=== PATIENT | female | born 1945 | race Caucasian/White ===

== ENCOUNTER 2018-04-21 13:38 | Inpatient (IN) | payer MEDICARE, OTHER ==
[~2018-04-21] VITALS: Ht 172.7 cm; Wt 75.8 kg
[~2018-04-21 13:38] MED LIST: BACITRACIN 50,000 UNIT ONE
[2018-04-21] MEDS ORDERED: LACTATED RINGERS 1,000 ML IV SCH (13:59)
[2018-04-21] MEDS ORDERED: LORA10TA62 PO (14:47)
[2018-04-21] MEDS ORDERED: SENN-31 PO (14:47)
[2018-04-21] MEDS ORDERED: GABA300C10 PO (14:47)
[2018-04-21] MEDS ORDERED: AMLO10TA6 PO (14:47)
[2018-04-21] MEDS ORDERED: ZOLP5TAB PO (14:47)
[2018-04-21] MEDS ORDERED: METO-264 PO (14:47)
[2018-04-21] MEDS ORDERED: OXYB5TAB PO (14:47)
[2018-04-21] MEDS ORDERED: POTA25TA4 PO (14:47)
[2018-04-21] MEDS ORDERED: LEVO112T4 PO (14:47)
[2018-04-21] MEDS ORDERED: HYDR-3343 PO (14:47)
[2018-04-21] MEDS ORDERED: ROPI4TAB6 PO (14:47)
[2018-04-21] MEDS ORDERED: OMEP20CA14 PO (14:47)
[2018-04-21] MEDS ORDERED: METH500T97 PO (14:47)
[2018-04-21] MEDS ORDERED: OXYC5CAP2 PO (14:47)
[2018-04-21] MEDS ORDERED: SULF1TAB24 PO (14:47)
[2018-04-21 15:02] LABS: BASOPHILS # (AUTO) 0.08 x10^3/uL (0-0.1); BASOPHILS % (AUTO) 1 % (0-1); EOSINOPHILS # (AUTO) 0.47 x10^3/uL (0-0.4); EOSINOPHILS % (AUTO) 5 % (1-7); LYMPHOCYTES # (AUTO) 1.59 x10^3/uL (1-3.4); LYMPHOCYTES % (AUTO) 17 % (22-44); MD NO; MEAN CORPUSCULAR HGB CONC 33.2 g/dL (32.4-35.8); MEAN CORPUSCULAR VOLUME 90.4 fL (80-100); MEAN PLATELET VOLUME 10.2 fL (7.4-10.4); MONOCYTES # (AUTO) 0.82 x10^3/uL (0.2-0.8); MONOCYTES % (AUTO) 9 % (2-9); NEUTROPHILS # (AUTO) 6.38 x10^3/uL (1.8-6.8); NEUTROPHILS % (AUTO) 68 % (42-75); PLATELET COUNT 528 x10^3/uL (130-400); RED BLOOD COUNT 3.93 x10^6/uL (3.82-5.3); RED CELL DISTRIBUTION WIDTH 14.2 % (9.6-15.2)
[2018-04-21 15:04] VITALS: BP 142/79
[2018-04-21 15:12] LABS: ALANINE AMINOTRANSFERASE 21 U/L (12-78); ALBUMIN 2.8 g/dL (3.4-5.0); ANION GAP 12 mmol/L (5-15); CALCIUM 9.1 mg/dL (8.5-10.1); CHLORIDE 108 mmol/L (98-107)
[2018-04-21 15:15] LABS: ALKALINE PHOSPHATASE 102 U/L (45-117); BILIRUBIN,TOTAL 0.4 mg/dL (0.2-1.0); CREATININE 0.41 mg/dL (0.55-1.02); TOTAL PROTEIN 7.2 g/dL (6.4-8.2)
[2018-04-21] MEDS ORDERED: FENTANYL PF 100 MCG/2ML ONE ×4 (15:59→18:47)
[2018-04-21] MEDS ORDERED: THROMBIN 5,000 UNIT VIAL TP ONE (16:52)
[2018-04-21] MEDS ORDERED: BUPIVACAINE/PF-EPI 0.5% 1:200K ONE (16:52)
[2018-04-21] MEDS ORDERED: LABETALOL 5MG/ML, 20ML IV PRN (17:00)
[2018-04-21] MEDS ORDERED: ACETAMINOPHEN 325 MG TABLET PO PRN (17:00)
[2018-04-21] MEDS ORDERED: OXYcodone 5 MG/5 ML ORAL.SOL UDC PO PRN (17:00)
[2018-04-21] MEDS ORDERED: hydrALAzine 20 MG/ML, 1ML IV PRN (17:00)
[2018-04-21] MEDS ORDERED: DIAZEPAM 5 MG/ML, 2ML IVPush PRN (17:00)
[2018-04-21] MEDS ORDERED: ONDANSETRON 2MG/ML, 2ML IV PRN (17:00)
[2018-04-21] MEDS ORDERED: ONDANSETRON ODT 8 MG PO PRN (17:00)
[2018-04-21] MEDS ORDERED: MEPERIDINE/PF 25MG/0.5ML IVPush PRN (17:00)
[2018-04-21] MEDS ORDERED: PROCHLORPERAZINE 5 MG/ML, 2ML IV PRN (17:00)
[2018-04-21] MEDS ORDERED: MORPHINE SULFATE 4 MG/ML, 1ML IVPush PRN (17:00)
[2018-04-21] MEDS ORDERED: DEXAMETHASONE 4 MG/ML, 1ML ONE (17:15)
[2018-04-21] MEDS ORDERED: SUCCINYLCHOLINE 20 MG/ML, 10ML ONE (17:15)
[2018-04-21] MEDS ORDERED: ROCURONIUM 10MG/ML,5ML ONE (17:15)
[2018-04-21] MEDS ORDERED: CEFAZOLIN 1,000 MG ONE (17:15)
[2018-04-21] MEDS ORDERED: PROPOFOL 10 MG/ML, 20ML ONE (17:15)
[2018-04-21] MEDS ORDERED: ONDANSETRON 2MG/ML, 2ML ONE (17:15)
[2018-04-21] MEDS ORDERED: NEOSTIGMINE 1 MG/ML, 10ML ONE (17:15)
[2018-04-21] MEDS ORDERED: EPHEDRINE 50 MG/ML, 1ML ONE (17:18)
[2018-04-21] MEDS ORDERED: BACITRACIN 50,000 UNIT IM ONE (17:33)
[2018-04-21] MEDS ORDERED: HYDROmorphone 2 MG/ML, 1ML ONE (18:26)
[2018-04-21] MEDS: HYDROmorphone 2 MG/ML, 1ML IV PRN ×4 (18:28→19:01)
[2018-04-21] MEDS ORDERED: PROMETHAZINE 25 MG/ML, 1ML IM PRN (18:30)
[2018-04-21] MEDS ORDERED: HYDROcodone/APAP 10/325 MG TABLET PO PRN (18:30)
[2018-04-21] MEDS ORDERED: HYDROcodone/APAP 5/325 TABLET PO PRN (18:30)
[2018-04-21] MEDS ORDERED: DIPHENHYDRAMINE 50 MG/ML, 1ML IVPush PRN (18:30)
[2018-04-21] MEDS ORDERED: PHARMACY MAY ADJ FOR RENAL FX MC PRN (18:30)
[2018-04-21] MEDS ORDERED: BISACODYL 10 MG SUPP PR PRN (18:30)
[2018-04-21] MEDS ORDERED: OXYcodone 5 MG/5 ML ORAL.SOL UDC ONE (18:47)
[2018-04-21] MEDS: FENTANYL PF 100 MCG/2ML IV PRN ×2 (19:03→19:16)
[2018-04-21 20:41] VITALS: BP 124/70
[2018-04-21] MEDS: D5%-0.9% NACL+KCL 20MEQ 1,000 ML IV SCH (22:18)
[2018-04-21] MEDS: LORATADINE 10 MG TABLET PO SCH (22:20)
[2018-04-21] MEDS: OMEPRAZOLE 20 MG CAPSULE.DR PO SCH (22:21)
[2018-04-21] MEDS: METHOCARBAMOL 750 MG TABLET PO SCH ×2 (22:21→22:30)
[2018-04-21] MEDS: OXYBUTYNIN CHLORIDE 5 MG TABLET PO SCH (22:26)
[2018-04-21] MEDS: METOPROLOL TARTRATE 50 MG TABLET PO SCH (22:26)
[2018-04-21] MEDS: GABAPENTIN 300 MG CAPSULE PO SCH (22:26)
[2018-04-21] MEDS: ZOLPIDEM 5MG TABLET PO SCH (22:27)
[2018-04-21] MEDS: OXYcodone IR 5MG TABLET PO SCH ×2 (22:30→22:37)
[2018-04-21] MEDS: SODIUM CHLORIDE FLUSH 10ML SYR IVF SCH (22:35)
[2018-04-21] MEDS: ROPINIROLE 1MG TABLET PO SCH (22:37)
[2018-04-21] MEDS: CEFUROXIME 1.5 GM in SODIUM CHLORIDE 0.9% 50 ML IVPB SCH (22:44)
[2018-04-22] VITALS (7 sets, daily range): BP systolic 93–134; BP diastolic 51–67
[2018-04-22] MEDS ORDERED: ALBUTEROL SULFATE 2.5 MG/3 ML NPPB PRN
[2018-04-22] MEDS: OXYcodone IR 5MG TABLET PO SCH ×6 (02:34→23:30)
[2018-04-22] MEDS: METHOCARBAMOL 750 MG TABLET PO SCH ×2 (02:35→06:30)
[2018-04-22] MEDS: D5%-0.9% NACL+KCL 20MEQ 1,000 ML IV SCH ×2 (04:30→10:21)
[2018-04-22] MEDS: CEFUROXIME 1.5 GM in SODIUM CHLORIDE 0.9% 50 ML IVPB SCH (06:44)
[2018-04-22] MEDS: LEVOTHYROXINE 112 MCG TABLET PO SCH (07:50)
[2018-04-22] MEDS ORDERED: METHOCARBAMOL 750 MG TABLET PO PRN (08:00)
[2018-04-22] MEDS ORDERED: K-LYTE 25 MEQ TABLET.EFF PO SCH (09:00)
[2018-04-22] MEDS: METOPROLOL TARTRATE 50 MG TABLET PO SCH ×2 (09:26→21:18)
[2018-04-22] MEDS: SENNA/DOCUSATE TABLET PO SCH (09:27)
[2018-04-22] MEDS: LORATADINE 10 MG TABLET PO SCH (09:27)
[2018-04-22] MEDS: AMLODIPINE 10 MG TAB PO SCH (09:27)
[2018-04-22] MEDS: OXYBUTYNIN CHLORIDE 5 MG TABLET PO SCH ×2 (09:27→21:18)
[2018-04-22] MEDS: GABAPENTIN 300 MG CAPSULE PO SCH ×3 (09:27→21:18)
[2018-04-22] MEDS: ROPINIROLE 1MG TABLET PO SCH (09:27)
[2018-04-22] MEDS: OMEPRAZOLE 20 MG CAPSULE.DR PO SCH (09:27)
[2018-04-22] MEDS: K-LYTE 25 MEQ TABLET.EFF PO SCH (09:28)
[2018-04-22] MEDS: SODIUM CHLORIDE FLUSH 10ML SYR IVF SCH ×2 (09:30→21:17)
[2018-04-22] MEDS: CEFTAROLINE 600 MG in SODIUM CHLORIDE 0.9% 100 ML IV SCH (15:37)
[2018-04-22] MEDS: ONDANSETRON 2MG/ML, 2ML IVPush PRN (16:01)
[2018-04-22] MEDS: ZOLPIDEM 5MG TABLET PO SCH (21:17)
[2018-04-23] MEDS: D5%-0.9% NACL+KCL 20MEQ 1,000 ML IV SCH ×3 (00:30→20:27)
[2018-04-23 01:03] VITALS: BP 153/70
[2018-04-23 02:45] VITALS: BP 152/68
[2018-04-23] MEDS: OXYcodone IR 5MG TABLET PO SCH ×6 (03:25→23:57)
[2018-04-23] MEDS: CEFTAROLINE 600 MG in SODIUM CHLORIDE 0.9% 100 ML IV SCH (03:25)
[2018-04-23] MEDS: LEVOTHYROXINE 112 MCG TABLET PO SCH (05:50)
[2018-04-23 07:37] VITALS: BP 135/67
[2018-04-23] MEDS: OMEPRAZOLE 20 MG CAPSULE.DR PO SCH (08:18)
[2018-04-23] MEDS: SENNA/DOCUSATE TABLET PO SCH (08:18)
[2018-04-23] MEDS: ROPINIROLE 1MG TABLET PO SCH (08:18)
[2018-04-23] MEDS: LORATADINE 10 MG TABLET PO SCH (08:18)
[2018-04-23] MEDS: GABAPENTIN 300 MG CAPSULE PO SCH ×3 (08:18→20:30)
[2018-04-23] MEDS: OXYBUTYNIN CHLORIDE 5 MG TABLET PO SCH ×2 (08:18→20:31)
[2018-04-23] MEDS: AMLODIPINE 10 MG TAB PO SCH (08:19)
[2018-04-23] MEDS: METOPROLOL TARTRATE 50 MG TABLET PO SCH ×2 (08:19→20:31)
[2018-04-23] MEDS: SODIUM CHLORIDE FLUSH 10ML SYR IVF SCH ×2 (08:20→20:30)
[2018-04-23] MEDS: morphine SULFATE 10 MG/ML, 1ML IVPush PRN ×2 (10:00→18:20)
[2018-04-23 10:08] VITALS: BP 106/54
[2018-04-23] MEDS: CEFAZOLIN PMX 2GM/50ML 50 ML IV SCH ×2 (11:46→19:45)
[2018-04-23 15:00] VITALS: BP 129/71
[2018-04-23 18:40] VITALS: BP 127/67
[2018-04-23] MEDS: ZOLPIDEM 5MG TABLET PO SCH (20:31)
[2018-04-24] MEDS: morphine SULFATE 10 MG/ML, 1ML IVPush PRN ×3 (01:34→18:14)
[2018-04-24 03:20] VITALS: BP 138/70
[2018-04-24] MEDS: CEFAZOLIN PMX 2GM/50ML 50 ML IV SCH ×3 (03:20→18:35)
[2018-04-24] MEDS: OXYcodone IR 5MG TABLET PO SCH ×5 (03:58→20:01)
[2018-04-24] MEDS ORDERED: LEVOTHYROXINE 100 MCG TABLET ONE (05:57)
[2018-04-24] MEDS: LEVOTHYROXINE 112 MCG TABLET PO SCH (06:00)
[2018-04-24] MEDS ORDERED: LEVOTHYROXINE 25 MCG TABLET ONE (06:00)
[2018-04-24] MEDS: D5%-0.9% NACL+KCL 20MEQ 1,000 ML IV SCH ×2 (06:02→18:10)
[2018-04-24 07:29] VITALS: BP 177/72
[2018-04-24] MEDS: OMEPRAZOLE 20 MG CAPSULE.DR PO SCH (07:58)
[2018-04-24] MEDS: ROPINIROLE 1MG TABLET PO SCH (07:58)
[2018-04-24] MEDS: LORATADINE 10 MG TABLET PO SCH (07:59)
[2018-04-24] MEDS: GABAPENTIN 300 MG CAPSULE PO SCH ×3 (07:59→21:13)
[2018-04-24] MEDS: METOPROLOL TARTRATE 50 MG TABLET PO SCH ×2 (07:59→21:12)
[2018-04-24] MEDS: SODIUM CHLORIDE FLUSH 10ML SYR IVF SCH ×2 (08:00→21:13)
[2018-04-24] MEDS: SENNA/DOCUSATE TABLET PO SCH (08:01)
[2018-04-24] MEDS: OXYBUTYNIN CHLORIDE 5 MG TABLET PO SCH ×2 (08:01→21:13)
[2018-04-24] MEDS: AMLODIPINE 10 MG TAB PO SCH (08:01)
[2018-04-24] MEDS: K-LYTE 25 MEQ TABLET.EFF PO SCH (08:08)
[2018-04-24 13:53] VITALS: BP 147/67
[2018-04-24 19:42] VITALS: BP 137/75
[2018-04-24] MEDS: ZOLPIDEM 5MG TABLET PO SCH (21:12)
[2018-04-25] MEDS: OXYcodone IR 5MG TABLET PO SCH ×4 (00:01→11:28)
[2018-04-25 01:19] VITALS: BP 154/80
[2018-04-25] MEDS: CEFAZOLIN PMX 2GM/50ML 50 ML IV SCH ×2 (02:51→11:28)
[2018-04-25] MEDS: D5%-0.9% NACL+KCL 20MEQ 1,000 ML IV SCH ×2 (03:37→14:00)
[2018-04-25 05:16] LABS: HCT (SEDRATE) 34.7 % (34.6-47.8)
[2018-04-25 05:24] LABS: BASOPHILS # (AUTO) 0.04 x10^3/uL (0-0.1); BASOPHILS % (AUTO) 1 % (0-1); EOSINOPHILS # (AUTO) 0.25 x10^3/uL (0-0.4); EOSINOPHILS % (AUTO) 5 % (1-7); LYMPHOCYTES # (AUTO) 0.99 x10^3/uL (1-3.4); LYMPHOCYTES % (AUTO) 18 % (22-44); MD NO; MEAN CORPUSCULAR HEMOGLOBIN 30.5 pg (27.0-34.8); MEAN CORPUSCULAR HGB CONC 33.5 g/dL (32.4-35.8); MEAN CORPUSCULAR VOLUME 90.8 fL (80-100); MEAN PLATELET VOLUME 9.8 fL (7.4-10.4); MONOCYTES # (AUTO) 0.36 x10^3/uL (0.2-0.8); MONOCYTES % (AUTO) 6 % (2-9); NEUTROPHILS # (AUTO) 3.96 x10^3/uL (1.8-6.8); NEUTROPHILS % (AUTO) 71 % (42-75); PLATELET COUNT 394 x10^3/uL (130-400); RED BLOOD COUNT 3.77 x10^6/uL (3.82-5.3); RED CELL DISTRIBUTION WIDTH 13.7 % (9.6-15.2)
[2018-04-25 05:29] LABS: ALANINE AMINOTRANSFERASE 15 U/L (12-78); ALBUMIN 2.3 g/dL (3.4-5.0); ANION GAP 6 mmol/L (5-15); CALCIUM 8.7 mg/dL (8.5-10.1); CHLORIDE 108 mmol/L (98-107)
[2018-04-25 05:36] LABS: ALKALINE PHOSPHATASE 82 U/L (45-117); BILIRUBIN,TOTAL 0.2 mg/dL (0.2-1.0); TOTAL PROTEIN 6.5 g/dL (6.4-8.2)
[2018-04-25] MEDS: LEVOTHYROXINE 112 MCG TABLET PO SCH (06:08)
[2018-04-25] MEDS: morphine SULFATE 10 MG/ML, 1ML IVPush PRN ×2 (06:21→09:11)
[2018-04-25 06:50] VITALS: BP 135/62
[2018-04-25] MEDS: ROPINIROLE 1MG TABLET PO SCH (08:11)
[2018-04-25] MEDS: SENNA/DOCUSATE TABLET PO SCH (08:11)
[2018-04-25] MEDS: METOPROLOL TARTRATE 50 MG TABLET PO SCH (08:11)
[2018-04-25] MEDS: OMEPRAZOLE 20 MG CAPSULE.DR PO SCH (08:11)
[2018-04-25] MEDS: GABAPENTIN 300 MG CAPSULE PO SCH (08:11)
[2018-04-25] MEDS: AMLODIPINE 10 MG TAB PO SCH (08:11)
[2018-04-25] MEDS: LORATADINE 10 MG TABLET PO SCH (08:11)
[2018-04-25] MEDS: OXYBUTYNIN CHLORIDE 5 MG TABLET PO SCH (08:11)
[2018-04-25] MEDS: K-LYTE 25 MEQ TABLET.EFF PO SCH (08:12)
[2018-04-25] MEDS: SODIUM CHLORIDE FLUSH 10ML SYR IVF SCH (08:12)
[2018-04-25] MEDS ORDERED: DIPHENHYDRAMINE 25 MG CAPSULE PO PRN (09:00)
[2018-04-25] MEDS ORDERED: LABETALOL 5MG/ML, 20ML IVPush PRN (09:00)
[2018-04-25] MEDS ORDERED: DIPHENHYDRAMINE 50 MG/ML, 1ML IVPush PRN (09:00)
[2018-04-25] MEDS: ONDANSETRON 2MG/ML, 2ML IVPush PRN (09:07)
[2018-04-25] MEDS ORDERED: GABAPENTIN 300 MG CAPSULE PO SCH (11:00)
[2018-04-25 13:15] VITALS: BP 138/65
== END 2018-04-25 15:08 | DRG 856 ==
LOC: OR 13:38 → ORIP 18:03 → 4NOR 20:25
PROVIDERS: ADMIT Neurological Surgery; ATTEND Neurological Surgery
PROC: 01N10ZZ Release Cervical Nerve, Open Approach (ICD-10-PCS; 2018-04-21)
PROC: 0JB40ZZ Excision of Right Neck Subcutaneous Tissue and Fascia, Open Approach (ICD-10-PCS; 2018-04-21)
PROC: 0JB50ZZ Excision of Left Neck Subcutaneous Tissue and Fascia, Open Approach (ICD-10-PCS; principal; 2018-04-21 18:30)
DX: T81.41XA Infection following a procedure, superficial incisional surgical site, initial encounter (principal); E43 Unspecified severe protein-calorie malnutrition; G95.89 Other specified diseases of spinal cord; M48.02 Spinal stenosis, cervical region; M54.12 Radiculopathy, cervical region; E03.9 Hypothyroidism, unspecified; I10 Essential (primary) hypertension; J44.9 Chronic obstructive pulmonary disease, unspecified; Y83.8 Other surgical procedures as the cause of abnormal reaction of the patient, or of later complication, without mention of misadventure at the time of the procedure; G83.89 Other specified paralytic syndromes; A49.01 Methicillin susceptible Staphylococcus aureus infection, unspecified site; Z88.1 Allergy status to other antibiotic agents; Y92.89 Other specified places as the place of occurrence of the external cause
CPT/HCPCS: 36415; 71045; 80053; 85025; 85651; 86140; 87070; 87075; 87077; 87186; 87205; G0378; J0690; J0697; J0712; J1100; J1170; J2405; J2704; J2710; J3010; J3360; J0330; J2270; J3480; J7120

== ENCOUNTER 2020-01-26 00:30 | Emergency (ER) | payer MEDICARE, OTHER ==
[~2020-01-26] VITALS: Ht 170.2 cm; Wt 67.0 kg
[~2020-01-26 00:30] MED LIST changes: +AMLO10TA8 PO; -BACITRACIN 50,000 UNIT ONE; +GABA300C10 PO; +HYDR-3343 PO; +LEVO112T4 PO; +LORA10TA62 PO; +METH500T97 PO; +METO-264 PO; +OMEP20CA20 PO; +OXYB-39 PO; +OXYC5CAP2 PO; +POTA25TA4 PO; +ROPI4TAB6 PO; +SENN-31 PO; +SULF1TAB24 PO; +ZOLP5TAB PO
[2020-01-26 00:43] VITALS: BP 181/89
[2020-01-26 01:32] LABS: ALBUMIN 3.3 g/dL (3.4-5.0); ANION GAP 4 mmol/L (5-15); BASOPHILS # (AUTO) 0.04 x10^3/uL (0-0.1); BASOPHILS % (AUTO) 1 % (0-1); CALCIUM 8.4 mg/dL (8.5-10.1); CHLORIDE 110 mmol/L (98-107); CREATININE 0.67 mg/dL (0.55-1.02); EOSINOPHILS # (AUTO) 0.58 x10^3/uL (0-0.4); EOSINOPHILS % (AUTO) 9 % (1-7); LYMPHOCYTES # (AUTO) 1.94 x10^3/uL (1-3.4); LYMPHOCYTES % (AUTO) 29 % (22-44); MD NO; MEAN CORPUSCULAR HEMOGLOBIN 29.9 pg (27.0-34.8); MEAN CORPUSCULAR HGB CONC 32.9 g/dL (32.4-35.8); MEAN CORPUSCULAR VOLUME 90.9 fL (80-100); MEAN PLATELET VOLUME 9.7 fL (7.4-10.4); MONOCYTES # (AUTO) 0.58 x10^3/uL (0.2-0.8); MONOCYTES % (AUTO) 9 % (2-9); NEUTROPHILS # (AUTO) 3.49 x10^3/uL (1.8-6.8); NEUTROPHILS % (AUTO) 53 % (42-75); PLATELET COUNT 261 x10^3/uL (130-400); RED BLOOD COUNT 4.09 x10^6/uL (3.82-5.3); RED CELL DISTRIBUTION WIDTH 15.2 % (9.6-15.2)
== END 2020-01-26 03:21 | disposition home or self-care (01) ==
LOC: ED 02:13
DX: R04.0 Epistaxis (principal); R05 Cough; I10 Essential (primary) hypertension; K21.9 Gastro-esophageal reflux disease without esophagitis
CPT/HCPCS: 30901; 36415; 71045; 80048; 82040; 85025; 99284